=== PATIENT | female | born 1985 | race Two or more races ===

== ENCOUNTER 2021-08-02 09:22 | Emergency (ER) | payer OTHER ==
[~2021-08-02] VITALS: Ht 165.1 cm; Wt 49.9 kg
--- NOTE | 2021-08-02 09:32 | NUR ---
PT CAME TO ER C/O SOB AND CP X 4 DAYS. ADMITS DIZZINES, DENIES N/V. HX MITRAL VALVE PROLAPSE. AAOX4, AMBULATORY, BREATHING EVEN AND UNLABORED, PULSES 2+ BILATERALLY. ASSISTED TO ER BED 3, AWAITING MD FOR EVAL.
--- NOTE | 2021-08-02 09:41 | NUR ---
URINE SAMPLE OBTAINED AND SENT TO LAB
--- NOTE | 2021-08-02 09:56 | NUR ---
ROBINSON SAMPLE OBTAINED AND SENT TO LAB
--- NOTE | 2021-08-02 10:02 | NUR ---
EXTRACTOR PULLER AT BEDSIDE
[2021-08-02 10:14] LABS: BASOPHILS % (AUTO) 0.9 % (0.0-2.0); EOSINOPHILS % (AUTO) 1.4 % (0.0-6.0); HEMATOCRIT 44 % (33-45); HEMOGLOBIN 14.5 g/dL (11.5-14.8); LYMPHOCYTES % (AUTO) 36.3 % (20.0-44.0); MEAN CORPUSCULAR HGB CONC 33 g/dl (31.0-36.0); MEAN CORPUSCULAR VOLUME 83 fL (82-100); MONOCYTES # (AUTO) 0.4 K/uL (0.1-1.30); MONOCYTES % (AUTO) 7.3 % (2.0-12.0); NEUTROPHILS # (AUTO) 2.9 K/uL (1.8-8.9); NEUTROPHILS % (AUTO) 54.1 % (43.0-81.0); PLATELET COUNT (AUTO) 201 K/uL (150-450); RED BLOOD CELL COUNT(AUTO) 5.32 MIL/uL (4.0-5.2); WHITE BLOOD COUNT (AUTO) 5.4 K/uL (4.3-11.0)
[2021-08-02 10:25] LABS: CALCIUM, SERUM 9.3 mg/dL (8.5-10.1); CARBON DIOXIDE 27 mmol/L (21-32); CHLORIDE 103 mmol/L (98-107); CREATININE 0.8 mg/dL (0.6-1.3); GLUCOSE 83 mg/dL (74-106); POTASSIUM 3.9 mmol/L (3.5-5.1); SODIUM SERUM 137 mmol/L (136-145); UREA NITROGEN, BLOOD 8 mg/dL (7-18)
[2021-08-02] MEDS ORDERED: PROP10TA10 PO (11:37)
--- NOTE | 2021-08-02 11:42 | NUR ---
The patient is alert and oriented x4. Denies pain. In room air and denies SOB. Respiration regular and unlabored. IV removed. Catheter intact and site benign. Pressure and 4x4 applied to site. No bleeding noted.Patient discharged to home in stable condition. Written and verbal after care instructions given. Patient verbalizes understanding of instruction.
[2021-08-02 11:43] VITALS: BP 124/75
== END 2021-08-02 11:43 | disposition home or self-care (01) ==
LOC: ER 09:27
DX: R07.9 Chest pain, unspecified (principal); R06.00 Dyspnea, unspecified; Z60.2 Problems related to living alone; Z86.74 Personal history of sudden cardiac arrest
CPT/HCPCS: 36415; 71045-TC; 80048-TC; 84484-TC; 85025-TC; 85378-TC